=== PATIENT | female | born 1965 | race Caucasian/White ===

== ENCOUNTER → 2017-02-27 | Outpatient (CLI) | payer BC ==
[~2017-02-27] MED LIST: CYCL-36 PO; E-10CAP PO; GABA100C4 PO; GLUC1CAP14; L-LY500C2 PO; LIDO1PAD52 TOPICAL; LORA10TA7; MELO15 PO; MULT-65 PO; NICO21DI6 T-DERMAL; OXYC-396 PO; OXYC30TA PO; PERC10TA27 PO; PREG75 PO; SENN-29 PO; SOMA350T PO; VALA1TAB PO; VITA500C PO
== END ==
LOC: CPRE 12:15
PROVIDERS: ATTEND Neurological Surgery
DX: Z01.812 Encounter for preprocedural laboratory examination (principal)

== ENCOUNTER 2017-03-06 06:02 | Observation (INO) | payer BC ==
--- NOTE | 2017-03-05 18:54 | MH ---
cc: CASH CRAVEN M.D. DATE OF ADMISSION: 03/06/2017 ADMITTING DIAGNOSIS: Cervical degenerative disk disease with radiculopathy. HISTORY OF PRESENT ILLNESS This is a 51-year-old female who presented to us for evaluation of neck pain that she has had for over 15 years. She has had epidural steroid injections 15 years ago and also three more recently within the last 6 months. She states that they have helped in the past but not long lasting. She has pain radiating from her neck into the right biceps to the thumb with associated paresthesias and weakness. She also has left-sided neck pain but no radiculopathy. Her neck pain is worse with extension. She denies any paresthesias in the left upper extremity. The patient has tried meloxicam and Lyrica. She also suffers from chronic low back pain. The patient has required increasing doses of her pain medication she states that she now takes from pain management, oxycodone 20 mg three times a day. The patient is going to physical therapy and continues to exercise on her own. The patient has been unable to work given her pain for the last year. MRI of the cervical spine from May 04, 2016 was reviewed which reveals severe C5-C6 degenerative disk disease with disk height collapse and a disk/osteophyte complex with spinal stenosis and severe right-sided foraminal stenosis. There is also moderate C6-C7 degenerative disk disease with mild right-sided foraminal stenosis. PAST MEDICAL HISTORY: Significant for: 1. Chronic pain, neck and low back. 2. Depression 3. Hysterectomy for fibroids in December 2015. 4. Breast implant removal 5. Rhinoplasty in July 2016 6. Hernia repair in November 2015 CURRENT MEDICATIONS 1. She takes oxycodone 20 mg three times a day. 2. Lidocaine patch q. 12 hours. 3. Soma 350 mg three times a day. 4. Meloxicam 15 mg daily. This was placed on hold prior to surgical intervention. 5. Nicotine patch 21 mg daily. ALLERGIES TO MEDICATIONS She has no known drug allergies. FAMILY HISTORY Her mother is alive at 78 years old, had dementia. She has a father who is at 77 years old of melanoma. She has a sister who is alive at 58 in good health, another sister who is alive at 41 in good health. She has a brother who is alive at 56, who has a history of alcoholism. She has a brother who is alive at 40. SOCIAL HISTORY She is . She has one child. She quit smoking for the past 2 months in anticipation of surgery. She drinks alcohol rarely she states. REVIEW OF SYSTEMS: CONSTITUTIONAL: She denies any fever or chills. EARS, NOSE, AND THROAT: No pharyngitis, exudates, or blood draining from nose. CARDIOVASCULAR: Denies chest pain, positive for palpitations. RESPIRATORY: No cough or shortness of breath. GENITOURINARY: No dysuria or hematuria. MUSCULOSKELETAL: Positive for chronic neck and low back pain. SKIN: Positive for itching. NEUROLOGIC: No difficulty with speech or memory. GASTROINTESTINAL: No nausea, vomiting or abdominal pain. PSYCHIATRIC: Denies anxiety, positive for depression symptoms. ENDOCRINE: No polyuria, polydipsia. HEMATOLOGIC: No bruising or bleeding tendencies. PHYSICAL EXAMINATION: HEAD: Normocephalic, atraumatic. NECK: Supple. No carotid bruits heard on auscultation. LUNGS: Clear to auscultation bilaterally. HEART: Regular rate and rhythm. Normal S1, S2. ABDOMEN: Soft, nontender. Positive bowel sounds. SKIN: No cyanosis or erythema. MUSCULOSKELETAL: Strength is 5/5 in the upper and lower extremities. She ambulates without any assistive device. NEUROLOGIC: The patient is awake, alert and oriented. Cranial nerves II through XII appear grossly intact. Speech is fluent. Comprehension is good. Sensation is intact in the upper and lower extremities. Reflexes are 2+ in the upper and lower extremities. No Lake reflex. IMPRESSION: The patient is a 51 year-old female with a chronic history of neck pain along with a right C6 radiculopathy. She has a C5-C6 and C6-C7 disk osteophyte complex with right-sided foraminal stenosis and severe degenerative disc disease. PLAN: We have discussed treatment options with the patient. She has performed conservative treatment measures with physical therapy and pain management which she states does not give her any lasting relief. The patient is requesting that we proceed with surgical intervention. We have recommended an anterior C5-C6 microdiskectomy with fusion. The procedure as well as the risk, benefit, alternative, recovery time was discussed in great detail with the patient. The procedure was explained using spine models in the office and all of her questions were answered to her satisfaction. We have discussed the risks along with surgery to include but not limited to bleeding, infection, muscle weakness, voice hoarseness, difficulty swallowing, heart attack, stroke, blood clots, non fusion, scar tissue formation, among others. The patient understands that she must refrain from smoking during the healing process or she risk non fusion. No guarantees were made to the patient as to the success of the surgery. She understands this and is requesting we proceed. She is, therefore, scheduled accordingly. Dictated by: Dc Downs PA-C MD HAZEL Romero/GARRY /5:21 PM /5:58 PM
[~2017-03-06] VITALS: Ht 162.6 cm; Wt 65.0 kg
[~2017-03-06 06:02] MED LIST changes: -CYCL-36 PO; -E-10CAP PO; -GLUC1CAP14; -L-LY500C2 PO; -LORA10TA7; -MELO15 PO; -MULT-65 PO; -OXYC30TA PO; -PERC10TA27 PO; -PREG75 PO; -SENN-29 PO; -VALA1TAB PO; -VITA500C PO
[2017-03-06] MEDS ORDERED: GELFOAM SIZE 100 ONE (07:39)
[2017-03-06] MEDS ORDERED: BUPIVACAINE/EPINEPHRINE 0.5% 50 ML VIAL ONE (07:39)
[2017-03-06] MEDS ORDERED: VANCOMYCIN HCL 1000 MG VIAL ONE ×2 (07:39→08:33)
[2017-03-06] MEDS ORDERED: THROMBIN (TOPICAL) 5,000 UNIT VIAL ONE (07:39)
[2017-03-06 08:07] VITALS: BP 106/60; PULSE 61; RESP 16; TEMP 96.3; O2SAT 96
[2017-03-06] MEDS ORDERED: SODIUM CHLOR 0.9% 250 ML INJ 250 ML ONE (08:33)
[2017-03-06] MEDS ORDERED: POVIDONE IODINE 5% (ANTISEPSIS KIT) 4 APPLICATIONS EACH NARE PRN (08:45)
[2017-03-06] MEDS ORDERED: LACTATED RINGER'S 1000 ML IV PRN (08:45)
[2017-03-06] MEDS ORDERED: CHLORHEXIDINE GLUCONATE 2 % 1 PACK (2 CLOTHS) TOPICAL PRN (08:45)
[2017-03-06] MEDS ORDERED: SODIUM CHLORID 0.9% 500 ML IV PRN (08:45)
[2017-03-06] MEDS ORDERED: METOPROLOL TARTRATE 25 MG TAB PO PRN (08:45)
[2017-03-06] MEDS ORDERED: INSULIN HUMAN REGULAR 1,000 UNITS/10 ML VIAL SQ PRN (08:45)
[2017-03-06] MEDS ORDERED: VANCOMYCIN HCL 1000 MG ON-CALL/NS 250 ML IV SCH ×2 (09:00)
[2017-03-06] MEDS ORDERED: SODIUM CHLOR 0.9% 1000 ML INJ 1,000 ML IV SCH (09:00)
[2017-03-06] MEDS ORDERED: ACETAMINOPHEN 1000 MG/100 ML VIAL IV ONE (10:43)
[2017-03-06] MEDS ORDERED: NEOSTIGMINE 3 MG/3 ML SYR IV ONE (12:00)
[2017-03-06] MEDS ORDERED: ONDANSETRON HCL 4 MG/2 ML VIAL IV PUSH ONE (12:00)
[2017-03-06] MEDS ORDERED: NORMOSOL R INJ 1,000 ML IV ONE (12:00)
[2017-03-06] MEDS ORDERED: PROPOFOL 200 MG/20 ML AMP IV ONE (12:00)
[2017-03-06] MEDS ORDERED: DO NOT ADM ANY ANTICOAGULANT DRUGS PRN (12:54)
[2017-03-06] MEDS ORDERED: NS + KCL 20 MEQ INJ 1,000 ML IV SCH (13:01)
--- NOTE | 2017-03-06 13:06 | PD.OP ---
Abel Early D.O. Operative Report Date of Surgery: March 06, 2017 Preoperative Diagnosis: Intractable neck pain with right C6 radiculopathy; C5-6 severe degenerative disc disease with disc osteophyte complex and associated right foraminal stenosis Postoperative Diagnosis: Same Procedure: Anterior cervical C5-6 microdiscectomy with interbody fusion; anterior C5-6 cervical plate placement; C5-6 interbody cage placement; microsurgical technique Anesthesia: Gen. endotracheal by Jeannette Olguin Surgeon: Leonidas Goldman M.D. Drafter Electronic(s): Yvonne Hernandez Operation and Findings: Following administration of general endotracheal anesthesia, the patient received a gram of vancomycin intravenously. Sequential compression devices were placed in supine position on a Jimmy table and all pressure points adequately padded. The head secured in a donut and anterior cervical region then shaved and prepped with Chloraprep and sterilely draped with Ioban along with the usual sterile draping. A transverse skin incision on the left side of the neck was then made after infiltrating the skin with 0.5% Marcaine with epinephrine solution extending down through the platysma. At the anterior border of the sternocleidomastoid further dissection was undertaken developing a plane between the carotid sheath laterally and the trachea esophagus medially. The prevertebral fascia was exposed and dissected out. The medial attachments of the longus colli muscles were detached and a self-retaining retractor used for exposure. The C5-6 disc space was localized with a marking the disc space and using lateral fluoroscopy. Flinton distraction screws 14 mm length were placed one in the C5 and one in the C6 body interbody distraction and exposure. There was significant disc degeneration with disc height collapse and anterior osteophytes noted at the C5-6 level and the osteophytes were resected with a Leksell and annulus incised with a 15 blade and further dissection undertaken using microtechnique with microscope magnification. Diskectomy was undertaken with pituitaries and the endplates were also decorticated with curettes and drill bit. And more posteriorly there was disk osteophyte complex compressing the thecal sac along with a significant uncovertebral joint hypertrophy with right foraminal stenosis which was decompressed along with removal of the posterior longitudinal ligament. The foramen was decompressed bilaterally using a Kerrison's and palpation with a nerve hook, the exiting nerve roots were felt to be free. The area was then copiously irrigated. I then placed a Peek cage packed with local autograft bone at the C5-6 interspace under fluoroscopy guidance. Flinton distraction pins were removed and the holes plugged with Gelfoam for hemostasis. In order to facilitate the fusion and provide stabilization, a Precision spine cervical plate was then placed with two 14 mm variable angle screws in the C5 body and two 14 mm fixed angle screws in the C6 body. The plate screw locking mechanism was then engaged. AP and lateral fluoroscopy confirmed good placement of the construct and the retractor was then removed. Muscular bleeding points were cauterized with bipolar cautery and Gelfoam was then also used for hemostasis which was removed. The platysma was then approximated using 3-0 Vicryl interrupted stitches and 3-0 Vicryl subcuticular stitch also placed in an interrupted fashion, and final skin closure was with Mastisol and Steri-Strips. Sterile dressing was then applied. The patient was then extubated and taken to the recovery room. There are no intraoperative complications and all sponge and needle counts were correct at the end of procedure. Estimated blood loss was about 30 cc. The patient did undergo intraoperative neurologic monitoring which remained stable throughout the surgery. Leonidas Goldman MD March 06, 2017 13:06
[2017-03-06] MEDS ORDERED: MORPHINE SULFATE 4 MG/ML INJ IV PRN (13:15)
[2017-03-06] MEDS ORDERED: MAGNESIUM HYDROXIDE SUSP 30 ML CUP PO PRN (13:15)
[2017-03-06] MEDS ORDERED: SODIUM CHLORIDE 0.9% FLUSH 10 ML FLUSH IV FLUSH PRN (13:15)
[2017-03-06] MEDS ORDERED: ALUMINUM/MAGNESIUM/SIMETH 30 ML CUP PO PRN (13:15)
[2017-03-06] MEDS: DEXAMETHASONE SOD PHOS 4 MG/ML VIAL IV SCH ×2 (13:15→18:18)
[2017-03-06] MEDS ORDERED: MENTHOL LOZENGE BUCCAL PRN (13:15)
[2017-03-06] MEDS ORDERED: ZOLPIDEM TARTRATE 5 MG TAB PO PRN (13:15)
[2017-03-06] MEDS ORDERED: cloNIDine HCL 0.1 MG TAB PO PRN (13:15)
[2017-03-06] MEDS ORDERED: RESP: ALBUTEROL 2.5 MG/3 ML NEB (PRN) NEB (13:15)
[2017-03-06] MEDS: GABAPENTIN 100 MG CAP PO SCH ×2 (13:30→18:17)
[2017-03-06] MEDS ORDERED: *morphine SULFATE 8 MG/ML PERIprocedure ONLY ONE ×3 (13:34→15:18)
[2017-03-06] MEDS ORDERED: REMOVE OLD LIDOCAINE PATCH T-DERMAL SCH ×2 (13:45→21:00)
[2017-03-06] MEDS ORDERED: fentaNYL CITRATE 250 MCG/5 ML AMP ONE (13:46)
--- NOTE | 2017-03-06 15:11 | RADRPT ---
EXAM DATE/TIME: 03/06/2017 09:55 [facility] COMPARISON: No previous studies available for comparison. INDICATIONS : Fusion C5,C6 with screws and plate placement. MEDICAL HISTORY : None. SURGICAL HISTORY : None. ENCOUNTER: Initial ACUITY: 1 day PAIN SCORE: Non-responsive. LOCATION: Cervical spine. FINDINGS: Ventral fusion hardware is noted in the cervical spine at C5-6. Hardware appears well-positioned with good positioning of the disc spacer. Alignment is anatomic. CONCLUSION: Satisfactory appearance of [facility]CF Dl Santiago MD on March 06, 2017 at 15:07 Board Certified Radiologist. This report was verified electronically.
[2017-03-06] MEDS: CARISOPRODOL 350 MG TAB PO PRN ×2 (16:00→20:38)
[2017-03-06 21:15] VITALS: BP 100/61; PULSE 67; RESP 15; TEMP 96.5; O2SAT 98
[2017-03-06] MEDS: DOCUSATE SODIUM 100 MG CAP PO SCH (21:23)
[2017-03-06] MEDS: SODIUM CHLORIDE 0.9% FLUSH 10 ML FLUSH IV FLUSH SCH (21:23)
[2017-03-07 00:45] VITALS: BP 120/67; PULSE 62; RESP 16; TEMP 96.5; O2SAT 100
[2017-03-07] MEDS: DEXAMETHASONE SOD PHOS 4 MG/ML VIAL IV SCH (02:26)
[2017-03-07 04:45] VITALS: BP 99/52; PULSE 89; RESP 16; TEMP 96.9; O2SAT 92
[2017-03-07 08:00] VITALS: BP 90/53; PULSE 84; RESP 18; TEMP 97.9; O2SAT 94
[2017-03-07] MEDS ORDERED: LIDOCAINE HCL 5% PATCH T-DERMAL SCH (09:00)
[2017-03-07] MEDS ORDERED: PANTOPRAZOLE SOD 40 MG DELAYED RELEASE TAB PO SCH (09:00)
[2017-03-07] MEDS ORDERED: REMOVE OLD PATCH T-DERMAL SCH (09:00)
[2017-03-07] MEDS ORDERED: NICOTINE 21 MG/24 HR PATCH T-DERMAL SCH (09:00)
[2017-03-07] MEDS: GABAPENTIN 100 MG CAP PO SCH ×2 (09:32→14:05)
[2017-03-07] MEDS: DOCUSATE SODIUM 100 MG CAP PO SCH (09:32)
[2017-03-07] MEDS: CARISOPRODOL 350 MG TAB PO PRN (09:32)
[2017-03-07] MEDS: SODIUM CHLORIDE 0.9% FLUSH 10 ML FLUSH IV FLUSH SCH (09:33)
[2017-03-07 11:51] VITALS: BP 95/59; PULSE 81; RESP 18; TEMP 98.2; O2SAT 99
--- NOTE | 2017-03-07 13:21 | HHI.NSPN ---
History Chief Complaint: Chronic low back pain. Mild incisional pain neck. Interval History 03/07/17: Pt awake and alert. Complains of mild incisional pain but states feeling much better. No radiculopathy in UEs or paresthesias. She has chronic low back pain and is followed by pain management. Review of Systems General: Negative for: fever, chills, insomnia Respiratory: Negative for: shortness of breath, cough, sputum Cardiovascular: Negative for: chest pain Gastrointestinal: Negative for: nausea, vomitting, diarrhea, constipation Exam Results Vital Signs Date Time Temp Pulse Resp B/P Pulse Ox O2 Delivery O2 Flow Rate FiO2 03/07/17 11:51 98.2 81 18 95/59 99 03/06/17 20:40 21 03/06/17 17:55 Nasal Cannula 2 Intake and Output 03/06/17 03/06/17 03/07/17 08:00 16:00 00:00 Intake Total 1530 ml 880 ml Output Total 700 ml 250 ml Balance 830 ml 630 ml Physical Examination Resp: CTA bilaterally Heart: NSR no murmurs Abd: Soft positive bs Skin: Incision clean and dry. Bandage changed by Dr. Goldman Muscle: Moves all 4 extremities well. She ambulates to the bathroom. Neuro: Pt awake and alert. Follows commands well. Speech clear and appropriate. Lab, Micro, Other Results 03/06/17 03/06/17 03/07/17 15:00 23:00 07:00 Intake Total 1435 ml 975 ml 720 ml Output Total 700 ml 250 ml Balance 735 ml 725 ml 720 ml Intake Oral 680 ml 720 ml IV Total 235 ml 295 ml Other 1200 ml Output Urine Total 550 ml 250 ml Estimated Blood Loss 150 ml # Voids 2 3 3 # Bowel Movements 0 0 Medical Decision Making Impression and Plan A: 51 y/o FM s/p C5/C6 with interbody cage and cervical plate placement. P: Discharge pt home Keep incision clean and dry. Follow up as directed in 6 weeks with AP and Lateral cervical x-rays. Dc Downs March 07, 2017 13:21
[2017-03-07] MEDS ORDERED: OXYC-396 PO (13:29)
== END 2017-03-07 16:51 | disposition home or self-care (01) ==
LOC: HSDC 06:02 → HSDI 13:10 → N06A 18:08
PROVIDERS: ADMIT Neurological Surgery; ATTEND Neurological Surgery
DX: M48.02 Spinal stenosis, cervical region (principal); M50.322 Other cervical disc degeneration at C5-C6 level; M54.12 Radiculopathy, cervical region; M25.78 Osteophyte, vertebrae
CPT/HCPCS: 00600; 20936; 22551; 22845; 22853; 72040; 76000; 94150; C1713; G0378; J0131; J0690; J1100; J2270; J2405; J2710; J3010; J3370; J3480; J7050; J7120

== ENCOUNTER → 2017-09-04 | Outpatient (CLI) | payer BC ==
[~2017-09-04] MED LIST changes: +ASCO100029 PO; +BUPR150T3; +BUPR8SUB; +CYCL10TA PO; +GABA600T PO; +LYSI500T12 PO; -NICO21DI6 T-DERMAL; -OXYC-396 PO; +OXYC30TA PO; +PROB1CHW4 CHEW; +TYLE325T PO; +WALKER WHEELS/F1 MIS; +[UNRECOGNIZED DRUG - CODE] PO; +shower chair
--- NOTE | 2017-09-05 13:21 | EKG ---
Date Performed: 09/04/2017 Time Performed: 13:07:53 PTAGE: 52 years EKG: Sinus rhythm NORMAL ECG NO PREVIOUS TRACING DOCTOR: Ab Lara Interpretating Date/Time 09/05/2017 13:16:14
== END ==
LOC: CPRE 12:12
PROVIDERS: ATTEND Neurological Surgery
DX: Z01.810 Encounter for preprocedural cardiovascular examination (principal); M51.16 Intervertebral disc disorders with radiculopathy, lumbar region; M99.83 Other biomechanical lesions of lumbar region; M51.36 Other intervertebral disc degeneration, lumbar region
CPT/HCPCS: 93005

== ENCOUNTER 2017-09-09 06:28 | Inpatient (IN) | payer BC ==
[~2017-09-09] VITALS: Ht 162.6 cm; Wt 81.4 kg
[~2017-09-09 06:28] MED LIST changes: -BUPR150T3; -BUPR8SUB; -GABA100C4 PO; -SOMA350T PO; -WALKER WHEELS/F1 MIS; -shower chair
[2017-09-09] MEDS ORDERED: SODIUM CHLOR 0.9% 1000 ML INJ 1,000 ML IV SCH (07:15)
[2017-09-09] MEDS ORDERED: INSULIN HUMAN REGULAR 1,000 UNITS/10 ML VIAL SQ PRN (07:15)
[2017-09-09] MEDS ORDERED: CHLORHEXIDINE GLUCONATE 2 % 1 PACK (2 CLOTHS) TOPICAL PRN (07:15)
[2017-09-09] MEDS ORDERED: POVIDONE IODINE 5% (ANTISEPSIS KIT) 4 APPLICATIONS EACH NARE PRN (07:15)
[2017-09-09] MEDS ORDERED: LACTATED RINGER'S 1000 ML IV PRN (07:15)
[2017-09-09] MEDS ORDERED: METOPROLOL TARTRATE 25 MG TAB PO PRN (07:15)
[2017-09-09] MEDS ORDERED: VANCOMYCIN 1000 MG/NS 250 ML IV SCH ×2 (07:15)
[2017-09-09] MEDS ORDERED: SODIUM CHLORID 0.9% 500 ML IV PRN (07:15)
[2017-09-09] MEDS ORDERED: BUPIVACAINE/EPINEPHRINE 0.5% 50 ML VIAL ONE (07:17)
[2017-09-09] MEDS ORDERED: VANCOMYCIN HCL 1000 MG VIAL ONE ×2 (07:17→07:18)
[2017-09-09] MEDS ORDERED: THROMBIN (TOPICAL) 5,000 UNIT VIAL ONE (07:17)
[2017-09-09] MEDS ORDERED: GELFOAM SIZE 100 ONE (07:18)
--- NOTE | 2017-09-09 08:09 | MH ---
cc: CASH CRAVEN DATE OF ADMISSION 09/09/2017 ADMISSION DIAGNOSIS Lumbar degenerative disk disease HISTORY OF PRESENT ILLNESS This is a 52-year-old female who presented to us for an evaluation of low back pain. She has undergone a C5-C6 anterior cervical fusion with us four months ago and stated during her recovery that her low back pain was the predominant problem that she was developing now. She denies any radiculopathy in the lower extremities. She saw her primary care physician who ordered an MRI scan of the lumbar spine. She states that occasionally she gets a sciatic type pain in the right posterior leg at the bottom of the foot. No paresthesias or weakness in the lower extremities. She states that if she lays on the side this helps with her pain. She has been to pain management a couple years ago and had some injections which gave her temporary relief at the time. She has also had physical therapy recently which did not help her back pain. An MRI of the lumbar spine from June 26, 2017 reveals severe L4-L5 and L5-S1 degenerative disk disease with disk height collapse along with endplate changes and facet hypertrophy along with disk protrusion. PAST MEDICAL HISTORY 1. Headaches, 2. Depression, 3. Hysterectomy for fibroids in 2016, 4. Breast augmentation and then subsequent removal in 2016, 5. Rhinoplasty in 2016, 6. Hernia repair in 2016. MEDICATIONS 1. Gabapentin 600 mg 2. Flexeril 10 mg q.8 h p.r.n. muscle spasms. 3. Oxycodone 30 mg q.6 h as needed pain 4. Bupropion 150 mg daily. ALLERGIES She has no known drug allergies. FAMILY HISTORY Her mother is alive at 78 years old, has dementia. Her father is at 77 years old by melanoma. A sister is alive 50 years old in good health. Another sister is alive 41 years old in good health. She has a brother who is alive 56 years old, is an alcoholic. She has another brother who is alive at 40 years old. SOCIAL HISTORY She is . She has one child. She lives alone. She has quit smoking. She drinks alcohol rarely. REVIEW OF SYSTEMS CONSTITUTIONAL: She denies any fever or chills. EARS, NOSE, THROAT: No pharyngitis, exudates or bloody drainage from her nose CARDIOVASCULAR: She denies any chest pain. Positive for palpitations. RESPIRATORY: No cough or shortness of breath. GENITOURINARY: positive for urinary frequency and urgency MUSCULOSKELETAL: Positive for low back pain. SKIN: Positive for pruritus. NEUROLOGIC: No difficulty with speech or memory. GASTROINTESTINAL: No nausea, vomiting, abdominal pain. PSYCHIATRIC: No anxiety. Positive for depression. ENDOCRINE: No polyuria or polydipsia. HEMATOLOGIC: No bruising or bleeding tendencies. PHYSICAL EXAMINATION HEAD: Normocephalic, atraumatic NECK: Supple. No carotid bruits heard on auscultation. LUNGS: Clear to auscultation bilaterally. CARDIAC: Regular rate and rhythm, normal S1, S2. ABDOMEN: Soft, nontender. Positive bowel sounds. SKIN: Reveals no cyanosis or erythema. MUSCULOSKELETAL: She has 5/5 strength in the lower extremities. She ambulates without any assistive device. NEUROLOGIC: She is awake, alert, oriented. Cranial nerves II-XII are grossly intact. Her speech is fluent. Comprehension is good. Reflexes are 2+ in the lower extremities. IMPRESSION A 52-year-old female four months status post C5-C6 microdiskectomy with fusion with improved neck pain and radiculopathy. She has severe L4-L5 and L5-S1 degenerative disk disease with disk height collapse along with endplate changes and facet hypertrophy and disk protrusion. PLAN We have discussed treatment options for the lumbar spine. The patient is requesting that we proceed with surgical intervention stating that her pain is affecting her life and she is miserable with her discomfort. We have discussed the treatment options which include continued conservative treatment measures including physical therapy and pain management versus surgical intervention. The patient is requesting we proceed with surgical intervention. We have discussed with her an L4-L5 and L5-S1 transforaminal decompression with interbody fusion pedicle screw fixation. The procedure as well as the risks, benefit, alternatives and recovery time were explained in great detail with the patient and all of her questions were answered to her satisfaction. We have discussed the procedure using spine models in the office. The patient is requesting that we proceed understanding the procedure as well as the risks involved and she is therefore scheduled accordingly. Dictated by Dc Downs PA-C MD HAZEL Romero/ /4:05 PM /9:13 AM
[2017-09-09] MEDS ORDERED: ACETAMINOPHEN 1000 MG/100 ML 100 ML IV ONE (11:11)
[2017-09-09] MEDS ORDERED: DO NOT ADM ANY ANTICOAGULANT DRUGS PRN (11:38)
--- NOTE | 2017-09-09 11:40 | PD.OP ---
MD Mary Braun MD Operative Report Date of Surgery: Sep 09, 2017 Preoperative Diagnosis: Intractable low back pain with radiculopathy due to severe L4-5 and L5-S1 degenerative disc disease with facet arthropathy Postoperative Diagnosis: Same Procedure: Transforaminal L4-5 and L5-S1 interbody fusion; L4-S1 pedicle screw fixation; L4 -5 and L5-S1 interbody cage placement; microsurgical technique Anesthesia: Gen. endotracheal by Bladimir Olguin Surgeon: Leonidas Goldman M.D. Nephrology Social Worker(s): Yvonne Hernandez Operation and Findings: Following initiation of general endotracheal anesthesia, the patient had a Mckeon catheter placed along with sequential compression devices. A gram of vancomycin was administered intravenously and she was turned in a prone position on a Praveen frame, on a Jimmy table, and all pressure points adequately padded. The lumbosacral region was then prepped with Chloraprep and sterilely draped with Ioban along the usual sterile draping. A left paraspinal skin incision was then made extending from the L4-S1 levels after infiltrating the skin with 0.5% Marcaine with epinephrine solution extending down through the fascia. The muscle fibers were split using avascular fatty plane and detached from the underlying facets, transverse process and lateral portion of lamina on the left side and a self-retaining retractor used for exposure. Intraoperative fluoroscopy was also used for level of confirmation along with microscope magnification for further dissection. There was facet and ligamentum flavum hypertrophy noted at the L4-5 level and more severe at the L5-S1 level. Left L4-5 and L5-S1 facets were resected with a drill bit along with the lamina and there was severe foraminal and lateral recess stenosis from hypertrophied facet and severe disc height collapse and degeneration. Epidural hemostasis was achieved with bipolar cautery and Gelfoam with thrombin. Subsequently entered into the disc space at the L4-5 and L5-S1 levels with a # 15 blade and melissa were used for discectomy. I then placed PEEK cages packed with local autograft bone and more local autograft bone was packed adjacent to the cage in each interspace for added interbody fusion. With placement of the cages, I was able to distract the interspaces and opened up the foramen further bilaterally. Subsequently in order to facilitate the fusion and provide stabilization, pedicle screw fixation was undertaken using [place] spine screws on entry point at the left L4 and L5 levels at the junction of the transverse process and facet and left S1 at the sacral ala through the pedicle. Subsequently using AP and lateral fluoroscopy tap and screw placement undertaken. The screws were then connected with a leroy and locked in place with caps. The construct appeared very secure at this point. The area was then copiously irrigated with Vancomycin solution and powder. The retractors were removed and the bipolar cautery used for hemostasis. The muscle fascia was then approximated using 2-0 Vicryl interrupted stitches and then 3-0 Vicryl subcuticular stitches also placed in interrupted fashion. The final skin closure was completed with Mastisol and Steri-Strips. A sterile dressing was then applied. The patient then turned in supine position, extubated and taken to recovery room. There were no intraoperative complications. All sponge and needle counts were correct at the end of procedure. Estimated blood loss about 100 ml. Leonidas Goldman MD Sep 09, 2017 11:40
[2017-09-09] MEDS ORDERED: ACETAMINOPHEN 325 MG TAB PO PRN (12:00)
[2017-09-09] MEDS ORDERED: MENTHOL LOZENGE BUCCAL PRN (12:00)
[2017-09-09] MEDS ORDERED: ONDANSETRON HCL 4 MG/2 ML VIAL IV PUSH PRN (12:00)
[2017-09-09] MEDS ORDERED: NORMOSOL R INJ 1,000 ML IV ONE (12:00)
[2017-09-09] MEDS ORDERED: ROCURONIUM INJ 50 MG/5 ML SYRINGE IV PUSH ONE (12:00)
[2017-09-09] MEDS ORDERED: PROMETHAZINE INJ 25 MG/ML VIAL IM PRN (12:00)
[2017-09-09] MEDS ORDERED: PHENYLEPH/NS 1000 MCG/10 ML SYR IV ONE (12:00)
[2017-09-09] MEDS ORDERED: SODIUM CHLORIDE 0.9% FLUSH 10 ML FLUSH IV FLUSH PRN (12:00)
[2017-09-09] MEDS ORDERED: NALOXONE HCL 0.4 MG/ML AMP IV PUSH PRN (12:00)
[2017-09-09] MEDS ORDERED: PROPOFOL 200 MG/20 ML AMP IV ONE (12:00)
[2017-09-09] MEDS ORDERED: ALUMINUM/MAGNESIUM/SIMETH 30 ML CUP PO PRN (12:00)
[2017-09-09] MEDS ORDERED: POTASSIUM CHLOR 20 MEQ PREMIX 100 ML IV PRN (12:00)
[2017-09-09] MEDS ORDERED: RESP: ALBUTEROL 2.5 MG/3 ML NEB (PRN) NEB (12:00)
[2017-09-09] MEDS ORDERED: VECURONIUM BROMIDE 20 MG VIAL IV ONE (12:00)
[2017-09-09] MEDS ORDERED: CALCIUM GLUCONATE INJ 1 GM in SODIUM CHLORIDE 0.9% INJ 100 ML IV PRN (12:00)
[2017-09-09] MEDS ORDERED: ONDANSETRON HCL 4 MG/2 ML VIAL IV PUSH ONE (12:00)
[2017-09-09] MEDS ORDERED: NEOSTIGMINE 3 MG/3 ML SYR IV ONE (12:00)
[2017-09-09] MEDS ORDERED: cloNIDine HCL 0.1 MG TAB PO PRN (12:00)
[2017-09-09] MEDS ORDERED: GLYCOPYRROLATE 1 MG/5 ML SYRINGE IV PUSH ONE (12:00)
[2017-09-09] MEDS ORDERED: LIDOCAINE HCL 1% PF 5 ML AMPULE OTHER ONE (12:00)
[2017-09-09] MEDS ORDERED: ePHEDrine/NS 25 MG/5 ML SYR IV ONE (12:00)
[2017-09-09] MEDS ORDERED: diphenhydrAMINE HCL 50 MG/ML VIAL IV PUSH PRN (12:00)
[2017-09-09] MEDS ORDERED: MAGNESIUM SULFATE INJ 2 GM in SODIUM CHLORIDE 0.9% INJ 100 ML IV PRN (12:00)
[2017-09-09] MEDS ORDERED: *morphine SULFATE 8 MG/ML PERIprocedure ONLY ONE ×3 (12:01→12:40)
[2017-09-09] MEDS: NS + KCL 20 MEQ INJ 1,000 ML IV SCH ×2 (12:12→20:59)
[2017-09-09] MEDS: MORPHINE SULFATE 30 MG/30 ML PCA IV SCH ×2 (12:12→21:24)
[2017-09-09] MEDS: CYCLOBENZAPRINE HCL 10 MG TAB PO SCH ×2 (12:36→17:43)
[2017-09-09] MEDS ORDERED: ceFAZolin INJ 1,000 MG VIAL ONE (12:39)
[2017-09-09] MEDS ORDERED: SODIUM CHLORIDE 0.9% INJ 100 ML ONE (12:40)
[2017-09-09 13:37] LABS: HEMATOCRIT 36.6 % (35.0-46.0); MEAN CELL VOLUME 85.4 FL (80.0-100.0); MEAN CORPUSCULAR HGB CONC 32.8 % (32.0-36.0); PLATELET COUNT 207 TH/MM3 (150-450); RED BLOOD COUNT 4.29 MIL/MM3 (4.00-5.30); RED CELL DISTRIBUTION WIDTH 16.3 % (11.6-17.2); REVIEW FLAG FINAL; WHITE BLOOD COUNT 8.2 TH/MM3 (4.0-11.0)
[2017-09-09] MEDS ORDERED: *HYDROmorphone PF 1 MG VIAL PERIprocedural Use ONLY ONE (13:41)
[2017-09-09] MEDS: PCA - TOTAL MG MORPHINE DELIVERED PER SHIFT SCH ×2 (14:00→21:18)
[2017-09-09 14:04] LABS: BICARBONATE 25.9 MEQ/L (21.0-32.0); POTASSIUM 3.8 MEQ/L (3.5-5.1)
--- NOTE | 2017-09-09 15:15 | RADRPT ---
EXAM DATE/TIME: 09/09/2017 08:01 [facility] COMPARISON: No previous studies available for comparison. INDICATIONS : L4-5, L5-S1 fusion. MEDICAL HISTORY : Smoker. SURGICAL HISTORY : Hysterectomy. Umbilical hernia repair. Breast augmentation. ENCOUNTER: Initial ACUITY: 1 day PAIN SCORE: Non-responsive. LOCATION: Lumbar spine. FINDINGS: Transpedicular fixation L4-S1. The neodisc in good position. CONCLUSION: Anatomic alignment. Jimbo Smith MD FACR on September 09, 2017 at 15:12 Board Certified Radiologist. This report was verified electronically.
[2017-09-09] MEDS: GABAPENTIN 300 MG CAP PO SCH ×2 (15:58→23:34)
[2017-09-09] MEDS: ASCORBIC ACID 500 MG TAB PO SCH ×2 (15:58→20:58)
[2017-09-09 16:01] VITALS: BP 119/75; PULSE 84; RESP 17; TEMP 96.8; O2SAT 91
[2017-09-09 20:31] VITALS: BP 130/78; PULSE 110; RESP 18; TEMP 96.7; O2SAT 95
[2017-09-09] MEDS: SODIUM CHLORIDE 0.9% FLUSH 10 ML FLUSH IV FLUSH SCH (20:57)
[2017-09-09] MEDS: DOCUSATE SODIUM 100 MG CAP PO SCH (20:58)
[2017-09-09] MEDS ORDERED: ZOLPIDEM TARTRATE 5 MG TAB PO PRN (21:00)
[2017-09-09] MEDS: REMOVE OLD LIDOCAINE PATCH T-DERMAL SCH (21:00)
[2017-09-10] VITALS (10 sets, daily range): BP systolic 111–148; BP diastolic 62–80; PULSE 84–116; RESP 16–20; TEMP 97.2–101.5; O2SAT 94–99
[2017-09-10] MEDS: PCA - TOTAL MG MORPHINE DELIVERED PER SHIFT SCH ×3 (04:57→22:00)
[2017-09-10] MEDS: MORPHINE SULFATE 30 MG/30 ML PCA IV SCH ×2 (08:24→18:23)
[2017-09-10] MEDS: NS + KCL 20 MEQ INJ 1,000 ML IV SCH ×2 (08:27→18:25)
[2017-09-10] MEDS: DOCUSATE SODIUM 100 MG CAP PO SCH ×2 (08:27→23:03)
[2017-09-10] MEDS: LACTOBACILLUS ACIDOPHILUS TAB PO SCH (08:27)
[2017-09-10] MEDS: GABAPENTIN 300 MG CAP PO SCH ×2 (08:27→16:00)
[2017-09-10] MEDS: SODIUM CHLORIDE 0.9% FLUSH 10 ML FLUSH IV FLUSH SCH ×2 (08:27→21:00)
[2017-09-10] MEDS: PANTOPRAZOLE SOD 40 MG DELAYED RELEASE TAB PO SCH (08:28)
[2017-09-10] MEDS: LACTULOSE SYRUP 20 GM/30 ML CUP PO SCH (08:28)
[2017-09-10] MEDS: CYCLOBENZAPRINE HCL 10 MG TAB PO SCH (08:28)
[2017-09-10] MEDS: ASCORBIC ACID 500 MG TAB PO SCH ×2 (08:28→23:03)
[2017-09-10] MEDS: LIDOCAINE HCL 5% PATCH T-DERMAL SCH (08:28)
[2017-09-10] MEDS ORDERED: LACTASE PO SCH (09:00)
[2017-09-10] MEDS ORDERED: LYSINE HCL PO SCH (09:00)
--- NOTE | 2017-09-10 09:11 | HHI.NSPN ---
(Dc Downs) History Chief Complaint: Incisional back pain. (Dc Downs) Interval History This is a 52-year-old female who presented to us for an evaluation of low back pain. She has undergone a C5-C6 anterior cervical fusion with us four months ago and stated during her recovery that her low back pain was the predominant problem that she was developing now. She denies any radiculopathy in the lower extremities. She saw her primary care physician who ordered an MRI scan of the lumbar spine. She states that occasionally she gets a sciatic type pain in the right posterior leg at the bottom of the foot. No paresthesias or weakness in the lower extremities. She states that if she lays on the side this helps with her pain. She has been to pain management a couple years ago and had some injections which gave her temporary relief at the time. She has also had physical therapy recently which did not help her back pain. An MRI of the lumbar spine from June 26, 2017 reveals severe L4-L5 and L5-S1 degenerative disk disease with disk height collapse along with endplate changes and facet hypertrophy along with disk protrusion. 09/10/17: Pt underwent transforaminal L4-5 and L5-S1 interbody fusion; L4-S1 pedicle screw fixation; L4-5 and L5-S1 interbody cage placement; microsurgical technique on 09/09/17. Pt complains of incisional pain. She is on Oxycodone 30mg q 6 hours that she was on preop and Morphine CUSTOMER RESOLUTION SPECIALIST. She complains of pain radiating into the posterior LEs to the knees. No paresthesias. No weakness in LEs. (Dc Downs) Review of Systems General: Negative for: fever, chills, insomnia Respiratory: Negative for: shortness of breath, cough, sputum Cardiovascular: Negative for: chest pain Gastrointestinal: Negative for: nausea, vomitting, diarrhea, constipation ( Dc Downs) Exam Results Vital Signs Date Time Temp Pulse Resp B/P (MAP) Pulse Ox O2 Delivery O2 Flow Rate FiO2 09/10/17 08:24 18 09/10/17 07:57 96 Nasal Cannula 2.00 09/10/17 04:30 99.8 103 129/80 (96) Intake and Output 09/10/17 09/10/17 09/10/17 07:59 15:59 23:59 Intake Total 240 ml Output Total 1100 ml Balance -860 ml (Dc Downs) Physical Examination Resp: CTA bilaterally Heart: NSR no murmurs Abd: Soft positive bs Skin: No cyanosis or erythema. Bandage dry kept in place per orders. Muscle: Moves LEs with good strength. Neuro: Pt awake. Follows commands well. Speech appropriate. (Dc Downs) Lab, Micro, Other Results Last Impressions Lumbar Spine X-Ray 09/09/17 0000 Signed Impressions: Service Date/Time: Saturday, September 09, 2017 08:01 - CONCLUSION: Anatomic alignment. Jimbo Smith MD FACR Laboratory Tests Test 09/09/17 12:10 White Blood Count 8.2 TH/MM3 Red Blood Count 4.29 MIL/MM3 Hemoglobin 12.0 GM/DL Hematocrit 36.6 % Mean Corpuscular Volume 85.4 FL Mean Corpuscular Hemoglobin 28.0 PG Mean Corpuscular Hemoglobin Concent 32.8 % Red Cell Distribution Width 16.3 % Platelet Count 207 TH/MM3 Mean Platelet Volume 8.2 FL Hematology Comments Blood Urea Nitrogen 10 MG/DL Creatinine 0.53 MG/DL Random Glucose 120 MG/DL Calcium Level 8.5 MG/DL Sodium Level 138 MEQ/L Potassium Level 3.8 MEQ/L Chloride Level 104 MEQ/L Carbon Dioxide Level 25.9 MEQ/L Anion Gap 8 MEQ/L Estimat Glomerular Filtration Rate 120 ML/MIN (Dc Downs) Medical Decision Making Impression and Plan A: 52 y/o FM s/p transforaminal L4-5 and L5-S1 interbody fusion; L4-S1 pedicle screw fixation; L4-5 and L5-S1 interbody cage placement; microsurgical technique P: Continue with pain control. Pt has high tolerance for pain medication. PT oob with LSO brace. Increase PO intake. (Dc Downs) Attending Statement The exam, history, and the medical decision-making described in the above note were completed with the assistance of the mid-level provider. I reviewed and agree with the findings presented. I attest that I had a [id number] encounter with the patient on the same day, and personally performed and documented my assessment and findings in the medical record. She relates incisional pain and left lower extremity muscle spasms. She informs me that in addition of Flexeril she was also taking Soma at home and doubling up on it along with the oxycodone and admits to overdosing at home. Nursing staff also relates that they found oxycodone in her purse that she may have been taking from home. Discussed at length with patient and that she has to be honest about her use of the narcotic pain medications and muscle relaxers so we can make an informed decision about her postop pain management. She is requesting that her muscle relaxant Flexeril be switched to Soma since this seems to work better for her. We will continue with the morphine CUSTOMER RESOLUTION SPECIALIST along with oxycodone and Soma use. (Leonidas Goldman MD) Dc Downs Sep 10, 2017 09:11 Leonidas Goldman MD Sep 10, 2017 13:18
[2017-09-10] MEDS: CARISOPRODOL 350 MG TAB PO SCH ×2 (13:41→23:03)
[2017-09-10] MEDS: REMOVE OLD LIDOCAINE PATCH T-DERMAL SCH (21:00)
[2017-09-11] VITALS (7 sets, daily range): BP systolic 117–154; BP diastolic 66–98; PULSE 90–103; RESP 17–18; TEMP 97.6–100.1; O2SAT 94–98
[2017-09-11] MEDS: GABAPENTIN 300 MG CAP PO SCH ×3 (00:11→16:05)
[2017-09-11] MEDS: NS + KCL 20 MEQ INJ 1,000 ML IV SCH ×2 (04:30→19:31)
[2017-09-11] MEDS: MORPHINE SULFATE 30 MG/30 ML PCA IV SCH ×2 (05:37→13:48)
[2017-09-11] MEDS: PCA - TOTAL MG MORPHINE DELIVERED PER SHIFT SCH ×3 (06:00→22:00)
[2017-09-11] MEDS: CARISOPRODOL 350 MG TAB PO SCH ×3 (06:00→22:03)
[2017-09-11] MEDS: DOCUSATE SODIUM 100 MG CAP PO SCH ×2 (08:32→21:08)
[2017-09-11] MEDS: PANTOPRAZOLE SOD 40 MG DELAYED RELEASE TAB PO SCH (08:33)
[2017-09-11] MEDS: LACTOBACILLUS ACIDOPHILUS TAB PO SCH (08:33)
[2017-09-11] MEDS: ASCORBIC ACID 500 MG TAB PO SCH ×2 (08:33→21:08)
[2017-09-11] MEDS: LIDOCAINE HCL 5% PATCH T-DERMAL SCH (08:34)
[2017-09-11] MEDS: LACTULOSE SYRUP 20 GM/30 ML CUP PO SCH (08:34)
[2017-09-11] MEDS: SODIUM CHLORIDE 0.9% FLUSH 10 ML FLUSH IV FLUSH SCH ×2 (09:00→21:08)
--- NOTE | 2017-09-11 09:03 | HHI.NSPN ---
History Chief Complaint: Incisional back pain. Interval History This is a 52-year-old female who presented to us for an evaluation of low back pain. She has undergone a C5-C6 anterior cervical fusion with us four months ago and stated during her recovery that her low back pain was the predominant problem that she was developing now. She denies any radiculopathy in the lower extremities. She saw her primary care physician who ordered an MRI scan of the lumbar spine. She states that occasionally she gets a sciatic type pain in the right posterior leg at the bottom of the foot. No paresthesias or weakness in the lower extremities. She states that if she lays on the side this helps with her pain. She has been to pain management a couple years ago and had some injections which gave her temporary relief at the time. She has also had physical therapy recently which did not help her back pain. An MRI of the lumbar spine from June 26, 2017 reveals severe L4-L5 and L5-S1 degenerative disk disease with disk height collapse along with endplate changes and facet hypertrophy along with disk protrusion. 09/10/17: Pt underwent transforaminal L4-5 and L5-S1 interbody fusion; L4-S1 pedicle screw fixation; L4-5 and L5-S1 interbody cage placement; microsurgical technique on 09/09/17. Pt complains of incisional pain. She is on Oxycodone 30mg q 6 hours that she was on preop and Morphine CARPENTER APPRENTICE. She complains of pain radiating into the posterior LEs to the knees. No paresthesias. No weakness in LEs. 09/11/17: Isn't awake. Complains of pain in the low back. Complains of muscle spasms in the left leg. Soma was added to her regime yesterday and she states this has helped some. Patient admits that she was taken more than the prescribed pain medication and muscle relaxants as outpatient therefore tolerance is very high. Additional pain medication was added to her regimen yesterday to help with breakthrough pain. Patient appears more comfortable than yesterday. Review of Systems General: Negative for: fever, chills, insomnia Respiratory: Negative for: shortness of breath, cough, sputum Cardiovascular: Negative for: chest pain Gastrointestinal: Negative for: nausea, vomitting, diarrhea, constipation Exam Results Vital Signs Date Time Temp Pulse Resp B/P (MAP) Pulse Ox O2 Delivery O2 Flow Rate FiO2 09/11/17 07:52 99.9 94 18 139/81 (100) 96 09/10/17 17:23 Nasal Cannula 2.00 Intake and Output 09/11/17 09/11/17 09/12/17 08:00 16:00 00:00 Intake Total 240 ml Output Total 600 ml Balance -360 ml Physical Examination Resp: CTA bilaterally Heart: NSR no murmurs Abd: Soft positive bs Skin: No cyanosis or erythema. Bandage dry kept in place per orders. Muscle: Moves LEs with good strength. Neuro: Pt awake. Follows commands well. Speech appropriate. Lab, Micro, Other Results Last Impressions Lumbar Spine X-Ray 09/09/17 0000 Signed Impressions: Service Date/Time: Saturday, September 09, 2017 08:01 - CONCLUSION: Anatomic alignment. Jimbo Smith MD FACR Medical Decision Making Impression and Plan A: 52 y/o FM s/p transforaminal L4-5 and L5-S1 interbody fusion; L4-S1 pedicle screw fixation; L4-5 and L5-S1 interbody cage placement; microsurgical technique P: Continue with pain control. Pt has high tolerance for pain medication. Continue with PT. Pt would benefit from rehab placement given her pain, short ambulatory status, and she lives alone. Dc Downs Sep 11, 2017 9:03 am
[2017-09-11] MEDS: MAGNESIUM HYDROXIDE SUSP 30 ML CUP PO PRN (18:14)
[2017-09-11] MEDS: REMOVE OLD LIDOCAINE PATCH T-DERMAL SCH (21:00)
[2017-09-12] VITALS (7 sets, daily range): BP systolic 113–147; BP diastolic 64–90; PULSE 80–105; RESP 17–20; TEMP 97.7–99.8; O2SAT 93–96
[2017-09-12] MEDS: PCA - TOTAL MG MORPHINE DELIVERED PER SHIFT SCH (06:00)
[2017-09-12] MEDS: CARISOPRODOL 350 MG TAB PO SCH ×3 (06:26→21:15)
[2017-09-12] MEDS: LACTOBACILLUS ACIDOPHILUS TAB PO SCH (08:51)
[2017-09-12] MEDS: DOCUSATE SODIUM 100 MG CAP PO SCH ×2 (08:51→21:15)
[2017-09-12] MEDS: LIDOCAINE HCL 5% PATCH T-DERMAL SCH (08:51)
[2017-09-12] MEDS: GABAPENTIN 300 MG CAP PO SCH ×3 (08:51→16:00)
[2017-09-12] MEDS: PANTOPRAZOLE SOD 40 MG DELAYED RELEASE TAB PO SCH (08:51)
[2017-09-12] MEDS: ASCORBIC ACID 500 MG TAB PO SCH ×2 (08:51→21:15)
[2017-09-12] MEDS: LACTULOSE SYRUP 20 GM/30 ML CUP PO SCH (08:52)
[2017-09-12] MEDS: SODIUM CHLORIDE 0.9% FLUSH 10 ML FLUSH IV FLUSH SCH ×2 (08:57→21:15)
[2017-09-12] MEDS ORDERED: MORPHINE SULFATE 4 MG/ML INJ IV PUSH PRN (11:30)
[2017-09-12] MEDS ORDERED: OXYC30TA PO (12:03)
[2017-09-12] MEDS ORDERED: SOMA350T PO (12:03)
--- NOTE | 2017-09-12 12:15 | HHI.NSPN ---
History Chief Complaint: Incisional back pain. Interval History This is a 52-year-old female who presented to us for an evaluation of low back pain. She has undergone a C5-C6 anterior cervical fusion with us four months ago and stated during her recovery that her low back pain was the predominant problem that she was developing now. She denies any radiculopathy in the lower extremities. She saw her primary care physician who ordered an MRI scan of the lumbar spine. She states that occasionally she gets a sciatic type pain in the right posterior leg at the bottom of the foot. No paresthesias or weakness in the lower extremities. She states that if she lays on the side this helps with her pain. She has been to pain management a couple years ago and had some injections which gave her temporary relief at the time. She has also had physical therapy recently which did not help her back pain. An MRI of the lumbar spine from June 26, 2017 reveals severe L4-L5 and L5-S1 degenerative disk disease with disk height collapse along with endplate changes and facet hypertrophy along with disk protrusion. 09/10/17: Pt underwent transforaminal L4-5 and L5-S1 interbody fusion; L4-S1 pedicle screw fixation; L4-5 and L5-S1 interbody cage placement; microsurgical technique on 09/09/17. Pt complains of incisional pain. She is on Oxycodone 30mg q 6 hours that she was on preop and Morphine OFFLINE CUTTER. She complains of pain radiating into the posterior LEs to the knees. No paresthesias. No weakness in LEs. 09/11/17: Isn't awake. Complains of pain in the low back. Complains of muscle spasms in the left leg. Soma was added to her regime yesterday and she states this has helped some. Patient admits that she was taken more than the prescribed pain medication and muscle relaxants as outpatient therefore tolerance is very high. Additional pain medication was added to her regimen yesterday to help with breakthrough pain. Patient appears more comfortable than yesterday. 09/12/17: Pt awakens to voice. Appears more comfortable resting in bed today. She states the left leg spasms are not as bad but still gets them. She is sitting up in chair during the day. She currently is on a OFFLINE CUTTER. Review of Systems General: Negative for: fever, chills, insomnia Respiratory: Negative for: shortness of breath, cough, sputum Cardiovascular: Negative for: chest pain Gastrointestinal: Negative for: nausea, vomitting, diarrhea, constipation Exam Results Vital Signs Date Time Temp Pulse Resp B/P (MAP) Pulse Ox O2 Delivery O2 Flow Rate FiO2 09/12/17 11:51 98.0 91 19 113/68 (83) 95 09/11/17 19:02 Room Air 09/11/17 17:52 2.00 Intake and Output 09/12/17 09/12/17 09/13/17 08:00 16:00 00:00 Intake Total 360 ml Output Total 975 ml Balance -615 ml Physical Examination Resp: CTA bilaterally Heart: NSR no murmurs Abd: Soft positive bs Skin: No cyanosis or erythema. Bandage dry kept in place per orders. Muscle: Moves LEs with good strength. Neuro: Pt awakens to voice easily. Follows commands well. Speech appropriate. Sensation in LEs intact. Lab, Micro, Other Results Last Impressions Lumbar Spine X-Ray 09/09/17 0000 Signed Impressions: Service Date/Time: Saturday, September 09, 2017 08:01 - CONCLUSION: Anatomic alignment. Jimbo Smith MD FACR Medical Decision Making Impression and Plan A: 52 y/o FM s/p transforaminal L4-5 and L5-S1 interbody fusion; L4-S1 pedicle screw fixation; L4-5 and L5-S1 interbody cage placement; microsurgical technique P: Continue with pain control. Pt has high tolerance for pain medication. We will try to d/c computer systems security administrator after PT today. Continue with PT. Pt would benefit from rehab placement given her pain, short ambulatory status, and she lives alone. Plan on SNF placement tomorrow. Scripts in chart. Dc Downs Sep 12, 2017 12:15 pm
[2017-09-12] MEDS: oxyCODONE/ACETAMINOPHEN 10 MG/325 MG TAB PO PRN (15:41)
[2017-09-12] MEDS ORDERED: BISACODYL 10 MG SUPP RECTAL PRN (17:00)
[2017-09-12] MEDS: REMOVE OLD LIDOCAINE PATCH T-DERMAL SCH (21:17)
[2017-09-13] VITALS: BP 100/51; PULSE 75; RESP 18; TEMP 98.3; O2SAT 95
[2017-09-13] MEDS: GABAPENTIN 300 MG CAP PO SCH ×4 (00:04→23:54)
[2017-09-13] MEDS: oxyCODONE/ACETAMINOPHEN 10 MG/325 MG TAB PO PRN ×5 (00:05→23:54)
[2017-09-13] MEDS: CARISOPRODOL 350 MG TAB PO SCH ×3 (05:54→20:04)
[2017-09-13 08:00] VITALS: BP 112/73; PULSE 81; RESP 20; TEMP 99; O2SAT 100
[2017-09-13] MEDS: ASCORBIC ACID 500 MG TAB PO SCH ×2 (08:27→20:05)
[2017-09-13] MEDS: LACTOBACILLUS ACIDOPHILUS TAB PO SCH (08:27)
[2017-09-13] MEDS: PANTOPRAZOLE SOD 40 MG DELAYED RELEASE TAB PO SCH (08:27)
[2017-09-13] MEDS: DOCUSATE SODIUM 100 MG CAP PO SCH ×2 (08:28→20:04)
[2017-09-13] MEDS: LIDOCAINE HCL 5% PATCH T-DERMAL SCH (08:28)
[2017-09-13] MEDS: LACTULOSE SYRUP 20 GM/30 ML CUP PO SCH (08:30)
[2017-09-13] MEDS: SODIUM CHLORIDE 0.9% FLUSH 10 ML FLUSH IV FLUSH SCH ×2 (08:39→20:05)
[2017-09-13 09:15] VITALS: O2SAT 97
--- NOTE | 2017-09-13 10:38 | HHI.NSPN ---
History Chief Complaint: Incisional back pain. Interval History 09/10/17: Pt underwent transforaminal L4-5 and L5-S1 interbody fusion; L4-S1 pedicle screw fixation; L4-5 and L5-S1 interbody cage placement; microsurgical technique on 09/09/17. Pt complains of incisional pain. She is on Oxycodone 30mg q 6 hours that she was on preop and Morphine LINK TRAINER MECHANIC. She complains of pain radiating into the posterior LEs to the knees. No paresthesias. No weakness in LEs. 09/11/17: Isn't awake. Complains of pain in the low back. Complains of muscle spasms in the left leg. Soma was added to her regime yesterday and she states this has helped some. Patient admits that she was taken more than the prescribed pain medication and muscle relaxants as outpatient therefore tolerance is very high. Additional pain medication was added to her regimen yesterday to help with breakthrough pain. Patient appears more comfortable than yesterday. 09/12/17: Pt awakens to voice. Appears more comfortable resting in bed today. She states the left leg spasms are not as bad but still gets them. She is sitting up in chair during the day. She currently is on a LINK TRAINER MECHANIC. 09/13/17: Patient sitting up in a chair comfortably, notes improvement in her left leg pain complaints. Exam Results Vital Signs Date Time Temp Pulse Resp B/P (MAP) Pulse Ox O2 Delivery O2 Flow Rate FiO2 09/13/17 09:15 97 21 09/13/17 08:00 99.0 81 20 112/73 (86) 09/12/17 23:10 Room Air 09/11/17 17:52 2.00 Intake and Output 09/13/17 09/13/17 09/14/17 08:00 16:00 00:00 Intake Total 1200 ml Output Total 2075 ml Balance -875 ml Physical Examination Resp: CTA bilaterally Heart: NSR no murmurs Abd: Soft positive bs Skin: No cyanosis or erythema. Bandage dry kept in place per orders. Muscle: Moves LEs with good strength. Neuro: Awake and alert. Moving all 4 extremities well and has ambulated with therapy. Medical Decision Making Impression and Plan Assessment: Status post L4 5, L5-S1 interbody fusion and instrumentation. Stable postoperative course. Plan: Patient awaiting discharge to inpatient rehabilitation. Garrett Almanza MD Sep 13, 2017 10:38
[2017-09-13 12:00] VITALS: BP 126/80; PULSE 80; RESP 20; TEMP 97.4; O2SAT 98
--- NOTE | 2017-09-13 13:15 | HHI.FF ---
Face to Face Verification Diagnosis: (1) Low back pain (2) Chronic low back pain Physical Therapy Order: Evaluate and Treat I have seen patient Rossana Lee on 09/13/17. My clinical findings support the need for the requested home health care services because: Deconditioned w/ increased weakness I certify that my clinical findings support that this patient is homebound because: Post-op weakness Unsteady gait/balance Garrett Almanza MD Sep 13, 2017 13:15
[2017-09-13 19:00] VITALS: BP 128/80; PULSE 82; RESP 16; TEMP 96.6; O2SAT 95
[2017-09-13] MEDS: MAGNESIUM HYDROXIDE SUSP 30 ML CUP PO PRN (20:04)
[2017-09-13] MEDS: REMOVE OLD LIDOCAINE PATCH T-DERMAL SCH (20:07)
[2017-09-13 22:38] VITALS: O2SAT 95
[2017-09-14] VITALS: BP 106/72; PULSE 101; RESP 18; TEMP 96.5; O2SAT 94
[2017-09-14] MEDS: oxyCODONE/ACETAMINOPHEN 10 MG/325 MG TAB PO PRN (05:51)
[2017-09-14] MEDS: CARISOPRODOL 350 MG TAB PO SCH ×2 (05:51→12:39)
[2017-09-14 08:00] VITALS: BP 113/75; PULSE 89; RESP 18; TEMP 97.2; O2SAT 99
[2017-09-14] MEDS: LACTOBACILLUS ACIDOPHILUS TAB PO SCH (09:15)
[2017-09-14] MEDS: DOCUSATE SODIUM 100 MG CAP PO SCH (09:15)
[2017-09-14] MEDS: PANTOPRAZOLE SOD 40 MG DELAYED RELEASE TAB PO SCH (09:15)
[2017-09-14] MEDS: LACTULOSE SYRUP 20 GM/30 ML CUP PO SCH (09:15)
[2017-09-14] MEDS: ASCORBIC ACID 500 MG TAB PO SCH (09:15)
[2017-09-14] MEDS: GABAPENTIN 300 MG CAP PO SCH (09:15)
[2017-09-14] MEDS: SODIUM CHLORIDE 0.9% FLUSH 10 ML FLUSH IV FLUSH SCH (09:26)
[2017-09-14] MEDS: REMOVE OLD LIDOCAINE PATCH T-DERMAL SCH (09:27)
[2017-09-14] MEDS: LIDOCAINE HCL 5% PATCH T-DERMAL SCH (09:27)
[2017-09-14] MEDS ORDERED: WALKER WHEELS/F1 MIS ×4 (10:53→12:01)
== END 2017-09-14 15:47 | disposition home health service (06) | DRG 460 ==
LOC: HSDI 06:28 → N06B 14:55
PROVIDERS: ADMIT Neurological Surgery; ATTEND Neurological Surgery
PROC: 0SG30AJ Fusion of Lumbosacral Joint with Interbody Fusion Device, Posterior Approach, Anterior Column, Open Approach (ICD-10-PCS; 2017-09-09)
PROC: 0ST20ZZ Resection of Lumbar Vertebral Disc, Open Approach (ICD-10-PCS; 2017-09-09)
PROC: 0ST40ZZ Resection of Lumbosacral Disc, Open Approach (ICD-10-PCS; 2017-09-09)
PROC: 0SG00AJ Fusion of Lumbar Vertebral Joint with Interbody Fusion Device, Posterior Approach, Anterior Column, Open Approach (ICD-10-PCS; principal; 2017-09-09 07:55)
DX: M51.36 Other intervertebral disc degeneration, lumbar region (principal); F32.9 Major depressive disorder, single episode, unspecified; M51.37 Other intervertebral disc degeneration, lumbosacral region; M51.26 Other intervertebral disc displacement, lumbar region; Z87.891 Personal history of nicotine dependence; M62.838 Other muscle spasm; Z80.8 Family history of malignant neoplasm of other organs or systems; Z81.1 Family history of alcohol abuse and dependence
CPT/HCPCS: 72100; 76000; 80048; 85027; 86850; 86900; 86901; 94150; C1713; J0131; J0690; J1170; J2270; J2370; J2405; J2710; J3010; J3370; J3480; J7050; J7120; L0627